=== PATIENT | female | born 1990 | race Caucasian/White ===

== ENCOUNTER 2017-09-20 09:42 | Emergency (ER) | payer BC, OTHER ==
[~2017-09-20] VITALS: Ht 154.9 cm; Wt 65.0 kg
[~2017-09-20 09:42] MED LIST: CYCL5TAB PO; DICL75 PO; LORTA5 PO; MEDR4PAK3 PO; MIREIUD IU; ROBA750T3 PO
[2017-09-20 09:43] VITALS: BP 121/74; PULSE 89; RESP 16; TEMP 98.4; O2SAT 98
[2017-09-20] MEDS ORDERED: TOPA25TA8 PO (09:55)
[2017-09-20] MEDS ORDERED: SODIUM CHLOR 0.9% 1000 ML INJ 1,000 ML IV ONE (10:17)
[2017-09-20] MEDS ORDERED: SODIUM CHLORIDE 0.9% FLUSH 10 ML FLUSH IVF PRN (10:30)
--- NOTE | 2017-09-20 10:36 | PD ---
HPI Chief Complaint: Related Problem Time Seen by Provider: 10:17 Travel History International Travel<30 days: No Contact w/Intl Traveler<30days: No Traveled to known affect area: No History of Present Illness HPI Patient is a [id number], who presents to emergency room with complaints of irregular vaginal bleeding for the past 2-3 days. Patient reports that she is about 9 weeks , reports that her first day of her last menstrual cycle was on June 30, patient reports that for the past 2-3 days, she first noticed some vaginal spotting, reports that spotting is now turned to increased cramping and bleeding "like I am having my period." Patient reports concerns for possible miscarriage as her bleeding has been getting heavier. Patient reports that she has had 3 full-term vaginal deliveries with no complications, she will follow up with Dr. Sexton in the office. Patient reports that she recently changed insurance companies, she is waiting to follow-up with her primary care doctor for referral for an [employer] who will take her insurance. Patient with no fevers or chills, no nausea or vomiting. Reports increased lower abdominal cramping, no vaginal discharge. Patient with no fevers or chills. Patient also reports that she has been feeling achy all over, reports increased cramping to her calves bilaterally. Patient denies any shortness of breath. Patient with no history of PE or DVT PFSH Past Medical History Asthma: Yes Diminished Hearing: No Genetic Disorder: Yes (GASTRITIS) Tetanus Vaccination: < 5 Years ?: LMP: 07/05/17 : 4 Para: 3 Past Surgical History Tonsillectomy: Yes Family History Family Myocardial Infarction: No Social History Alcohol Use: No Tobacco Use: No Substance Use: No Allergies-Medications (Allergen,Severity, Reaction): Coded Allergies: cefazolin (Unverified Allergy, Severe, 09/20/17) Reported Meds & Prescriptions Reported Meds & Active Scripts Active Reported Topamax (Topiramate) 25 Mg Tab 25 Mg PO HS Review of Systems General / Constitutional: No: Fever Eyes: No: Visual changes HENT: No: Headaches Cardiovascular: No: Chest Pain or Discomfort Respiratory: No: Shortness of Breath Gastrointestinal: Positive: Abdominal Pain Genitourinary: Positive: Pelvic Pain, Vaginal Bleeding, No: Dysuria Musculoskeletal: No: Pain Skin: No Rash Neurologic: No: Weakness Psychiatric: No: Depression Endocrine: No: Polydipsia Hematologic/Lymphatic: No: Easy Bruising Physical Exam Narrative GENERAL: Mild distress SKIN: Focused skin assessment warm/dry. HEAD: Atraumatic. Normocephalic. EYES: Pupils equal and round. No scleral icterus. No injection or drainage. ENT: No nasal bleeding or discharge. Mucous membranes pink and moist. NECK: Trachea midline. No JVD. CARDIOVASCULAR: Regular rate and rhythm. No murmur appreciated. RESPIRATORY: No accessory muscle use. Clear to auscultation. Breath sounds equal bilaterally. GASTROINTESTINAL: Abdomen soft, non-tender, nondistended. Hepatic and splenic margins not palpable. Patient with lower abdominal cramping : Pelvic exam performed with RN at bedside, Patient with no cmt or adnexal tenderness, patient with mild dark brown blood on vaginal exam. MUSCULOSKELETAL: No obvious deformities. No clubbing. No cyanosis. No edema. NEUROLOGICAL: Awake and alert. No obvious cranial nerve deficits. Motor grossly within normal limits. Normal speech. PSYCHIATRIC: Appropriate mood and affect; insight and judgment normal. Data Data Last Documented VS Vital Signs Date Time Temp Pulse Resp B/P (MAP) Pulse Ox O2 Delivery O2 Flow Rate FiO2 09/20/17 14:15 81 16 102/60 (74) 98 Room Air 09/20/17 09:43 98.4 Orders Orders Beta Hcg (Quant/Titer) (09/20/17 10:17) Complete Blood Count With Diff (09/20/17 10:17) Comprehensive Metabolic Panel (09/20/17 10:17) Gc And Chlamydia Pcr (09/20/17 10:17) Type And Screen (09/20/17 10:17) Us Pelvis (Ques Pr/Ect)W Trans (09/20/17 ) Wet Prep Profile (09/20/17 10:17) Urinalysis - C+S If Indicated (09/20/17 10:17) Iv Access Insert/Monitor (09/20/17 10:17) Sodium Chloride 0.9% Flush (Ns Flush) (09/20/17 10:30) Sodium Chlor 0.9% 1000 Ml Inj (Ns 1000 M (09/20/17 10:17) Ed Urine Pregnancytest Poc (09/20/17 10:17) Us Leg Venous Doppler Bilat (10/21/17 ) Acetaminophen (Tylenol) (09/20/17 10:45) Labs Laboratory Tests Test 09/20/17 10:40 09/20/17 10:45 Urine Color YELLOW Urine Turbidity HAZY Urine pH 8.0 Urine Specific [place] 1.020 Urine Protein TRACE mg/dL Urine Glucose (UA) NEG mg/dL Urine Ketones NEG mg/dL Urine Occult Blood MOD Urine Nitrite NEG Urine Bilirubin NEG Urine Urobilinogen LESS THAN 2.0 MG/DL Urine Leukocyte Esterase TRACE Urine RBC 2 /hpf Urine WBC 5 /hpf Urine Squamous Epithelial Cells 11 /hpf Urine Amorphous Sediment RARE Urine Bacteria RARE /hpf Microscopic Urinalysis Comment CULT NOT INDICATED Clue Cells (Wet Prep) NONE SEEN Vaginal Trichomonas (Wet Prep) NONE SEEN Vaginal Yeast (Wet Prep) NONE SEEN White Blood Count 7.3 TH/MM3 Red Blood Count 4.51 MIL/MM3 Hemoglobin 13.8 GM/DL Hematocrit 40.6 % Mean Corpuscular Volume 90.0 FL Mean Corpuscular Hemoglobin 30.5 PG Mean Corpuscular Hemoglobin Concent 33.9 % Red Cell Distribution Width 13.8 % Platelet Count 237 TH/MM3 Mean Platelet Volume 8.8 FL Neutrophils (%) (Auto) 54.3 % Lymphocytes (%) (Auto) 34.6 % Monocytes (%) (Auto) 7.8 % Eosinophils (%) (Auto) 2.8 % Basophils (%) (Auto) 0.5 % Neutrophils # (Auto) 4.0 TH/MM3 Lymphocytes # (Auto) 2.5 TH/MM3 Monocytes # (Auto) 0.6 TH/MM3 Eosinophils # (Auto) 0.2 TH/MM3 Basophils # (Auto) 0.0 TH/MM3 CBC Comment DIFF FINAL Differential Comment Blood Urea Nitrogen 14 MG/DL Creatinine 0.68 MG/DL Random Glucose 86 MG/DL Total Protein 7.4 GM/DL Albumin 3.6 GM/DL Calcium Level 8.5 MG/DL Alkaline Phosphatase 55 U/L Aspartate Amino Transf (AST/SGOT) 14 U/L Alanine Aminotransferase (ALT/SGPT) 42 U/L Total Bilirubin 0.3 MG/DL Sodium Level 140 MEQ/L Potassium Level 4.0 MEQ/L Chloride Level 107 MEQ/L Carbon Dioxide Level 29.2 MEQ/L Anion Gap 4 MEQ/L Estimat Glomerular Filtration Rate 105 ML/MIN Human Chorionic Gonadotropin, Quant 954 MIU/ML MDM Medical Decision Making Medical Screen Exam Complete: Yes Emergency Medical Condition: Yes Medical Record Reviewed: Yes Interpretation(s) Vital Signs Date Time Temp Pulse Resp B/P (MAP) Pulse Ox O2 Delivery O2 Flow Rate FiO2 09/20/17 09:43 98.4 89 16 121/74 (90) 98 Room Air Differential Diagnosis Differential included threatened miscarriage, irregular vaginal bleeding with early , ectopic Narrative Course Patient is a 27 year old female who presents to ER with c/o of irregular vaginal bleeding. She is currently 9 weeks with her fourth , reports that she noticed spotting 2-3 days ago, reports that spotting has progressed over the past 2 days with increased pelvic cramping. A pelvic exam performed, patient with mild light brown discharge. Patient with no CMT or adnexal tenderness. Plan to obtain blood work including a hCG Quant, pelvic US ordered. Plan to monitor patient Vital Signs Date Time Temp Pulse Resp B/P (MAP) Pulse Ox O2 Delivery O2 Flow Rate FiO2 09/20/17 12:37 73 14 109/56 (73) 100 Room Air 09/20/17 09:43 98.4 89 16 121/74 (90) 98 Room Air CBC & BMP Diagram 09/20/17 10:45 Total Protein 7.4, Albumin 3.6, Calcium Level 8.5, Alkaline Phosphatase 55, Aspartate Amino Transf (AST/SGOT) 14 L, Alanine Aminotransferase (ALT/SGPT) 42, Total Bilirubin 0.3 HCG quant 954 Last Impressions Pelvis Ultrasound 09/20/17 0000 Signed Impressions: Service Date/Time: Wednesday, September 20, 2017 12:10 - CONCLUSION: An IUP is not seen. There is a small amount of free fluid in the pelvis. There are small cystic area seen over the cervix likely related to nabothian cysts Zbigniew Bocanegra MD Lower Extremity Ultrasound 09/20/17 0000 Signed Impressions: Service Date/Time: Wednesday, September 20, 2017 11:55 - CONCLUSION: Normal examination. Per Winter Jr., MD HCG quant 954, pelvic US with no IUP. Patient with most likely miscarriage versus early . Given that she is 9 weeks , patient with most likely spontaneous miscarriage as she does not have IUP or pole seen on her US at this time. Patient was given a copy of her labs and studies at discharge. Understands need for repeat HCG quant in 48 hours. Understands need for repeat pelvic US. Patient will follow up with her merchandise buyer and will return to ER as needed. Understands need for pelvic rest. Diagnosis Primary Impression: Threatened miscarriage in early Additional Impression: Bleeding in early Patient Instructions: General Instructions Additional Instructions: Please provide patient with a copy of her studies and labs at discharge Pelvic rest until you are seen and cleared by your merchandise buyer Your HCG quant was 954, you will need this lab repeated in 48 hours. Please follow up with your merchandise buyer Return to ER as needed Have your lower extremity ultrasound repeated in 1 week if symptoms continue. Disposition: 01 DISCHARGE HOME Condition: Stable Bia Linda DO Sep 20, 2017 10:36
[2017-09-20] MEDS ORDERED: ACETAMINOPHEN 325 MG TAB PO ONE (10:45)
[2017-09-20 11:06] LABS: BASOPHIL % 0.5 % (0.0-2.0); EOSINOPHIL # 0.2 TH/MM3 (0-0.4); EOSINOPHIL % 2.8 % (0.0-4.0); HEMATOCRIT 40.6 % (35.0-46.0); HEMOGLOBIN 13.8 GM/DL (11.6-15.3); LYMPH % 34.6 % (9.0-44.0); LYMPHOCYTE # 2.5 TH/MM3 (1.0-4.8); MEAN CORPUSCULAR HEMOGLOBIN 30.5 PG (27.0-34.0); MEAN CORPUSCULAR HGB CONC 33.9 % (32.0-36.0); MEAN PLATELET VOLUME 8.8 FL (7.0-11.0); MONO % 7.8 % (0.0-8.0); MONOCYTE # 0.6 TH/MM3 (0-0.9); NEUT % 54.3 % (16.0-70.0); PLATELET COUNT 237 TH/MM3 (150-450); RED BLOOD COUNT 4.51 MIL/MM3 (4.00-5.30); RED CELL DISTRIBUTION WIDTH 13.8 % (11.6-17.2); WHITE BLOOD COUNT 7.3 TH/MM3 (4.0-11.0)
[2017-09-20 11:17] LABS: ALBUMIN 3.6 GM/DL (3.4-5.0); ALT (GPT) 42 U/L (10-53); AST (GOT) 14 U/L (15-37); BICARBONATE 29.2 MEQ/L (21.0-32.0); BLOOD UREA NITROGEN 14 MG/DL (7-18); CALCIUM 8.5 MG/DL (8.5-10.1); CHLORIDE 107 MEQ/L (98-107); CREATININE 0.68 MG/DL (0.50-1.00); GLOMERULAR FILTRATION RATE 105 ML/MIN (>89); GLUCOSE,RANDOM 86 MG/DL (74-106); SODIUM (NA) 140 MEQ/L (136-145)
[2017-09-20 11:21] LABS: ALKALINE PHOSPHATASE 55 U/L (45-117); TOTAL BILIRUBIN ADULT 0.3 MG/DL (0.2-1.0); TOTAL PROTEIN 7.4 GM/DL (6.4-8.2)
[2017-09-20 11:22] LABS: AMORPHOUS SEDIMENT, URINE RARE; BACTERIA, URINE RARE /hpf; BILIRUBIN, URINE NEG (NEG); BLOOD, URINE MOD (NEG); GLUCOSE,URINE NEG (NEG); KETONE, URINE NEG (NEG); NITRITE,URINE NEG (NEG); SQUAMOUS EPITHELIAL CELL URINE 11 /hpf (0-5); URINE COLOR YELLOW (YELLW/STRAW); URINE LEUKOCYTE ESTERASE TRACE (NEG)
[2017-09-20 12:37] VITALS: BP 109/56; PULSE 73; RESP 14; O2SAT 100
--- NOTE | 2017-09-20 13:18 | RADRPT ---
EXAM DATE/TIME: 09/20/2017 11:55 [facility] COMPARISON: No previous studies available for comparison. INDICATIONS : Bilateral leg cramping. MEDICAL HISTORY : Asthma. . Gastritis. SURGICAL HISTORY : Tonsillectomy. ENCOUNTER: Initial ACUITY: 3 days PAIN SCORE: 6/10 LOCATION: Bilateral legs. TECHNIQUE: Venous ultrasound of the left and right leg was performed from the inguinal ligament to the proximal calf. Real-time, color Doppler and spectral tracing, compression and augmentation techniques were us ed. FINDINGS: RIGHT LEG: There is normal compressibility of the deep venous system from the inguinal region to the proximal ca lf. No echogenic clot is seen in the lumen of the common femoral, femoral, popliteal, and posterior tibial veins. There is a normal response of the venous system to proximal and distal augmentation an d respiration. LEFT LEG: There is normal compressibility of the deep venous system from the inguinal region to the proximal ca lf. No echogenic clot is seen in the lumen of the common femoral, femoral, popliteal, and posterior tibial veins. There is a normal response of the venous system to proximal and distal augmentation an d respiration. CONCLUSION: Normal examination. Per Winter Jr., MD on September 20, 2017 at 13:15 Board Certified Radiologist. This report was verified electronically.
--- NOTE | 2017-09-20 13:28 | RADRPT ---
EXAM DATE/TIME: 09/20/2017 12:10 [facility] COMPARISON: No previous studies available for comparison. INDICATIONS : Vaginal bleeding with . LAB(S): Beta-hC MEDICAL HISTORY : Asthma. Gastritis. . SURGICAL HISTORY : Tonsillectomy. ENCOUNTER: Initial ACUITY: 1 week PAIN SCORE: 4/10 LOCATION: Bilateral pelvis MEASUREMENTS: UTERUS: 9.9 x 4.7 x 5.2 cm ENDOMETRIAL STRIPE: 11 mm RIGHT OVARY: 2.4 x 2.0 x 1.9 cm LEFT OVARY: 3.7 x 1.8 x 1.9 cm FREE FLUID: Yes FINDINGS: UTERUS: The myometrium has homogeneous echotexture without mass. There are small cysts at the cervix measuri ng 5 mm in greatest diameter likely related to nabothian cysts. RIGHT OVARY: Ovary contains no mass or significant cystic lesion. LEFT OVARY: Ovary contains no mass or significant cystic lesion. MISCELLANEOUS: There is mild free fluid. CONCLUSION: An IUP is not seen. There is a small amount of free fluid in the pelvis. There are small cystic area seen over the cervix likely related to nabothian cysts Zbigniew Bocanegra MD on September 20, 2017 at 13:19 Board Certified Radiologist. This report was verified electronically.
[2017-09-20 14:15] VITALS: BP 102/60; PULSE 81; RESP 16; O2SAT 98
== END 2017-09-20 14:43 | disposition home or self-care (01) ==
LOC: NEPD 09:42
DX: O20.0 Threatened abortion (principal); R25.2 Cramp and spasm; Z3A.09 9 weeks gestation of pregnancy
CPT/HCPCS: 76700; 76817; 80053; 81001; 84702; 84703; 85025; 86850; 86900; 86901; 87210; 87491; 87591; 93970; 96360; 99285; J7030